=== PATIENT | female | born 1995 | race Caucasian/White ===

== ENCOUNTER 2017-07-26 18:44 | Emergency (ER) | payer OTHER ==
[~2017-07-26] VITALS: Ht 154.9 cm; Wt 72.6 kg
[2017-07-26] MEDS ORDERED: CORTIZONE-1028 GM MISCELL (20:38)
[2017-07-26] MEDS ORDERED: BENADRYL25 MG PO (20:38)
[2017-07-26 20:47] VITALS: BP 133/82
== END 2017-07-26 20:47 | disposition home or self-care (01) ==
LOC: ER 18:44
DX: J02.9 Acute pharyngitis, unspecified (principal); R21 Rash and other nonspecific skin eruption; F10.99 Alcohol use, unspecified with unspecified alcohol-induced disorder